=== PATIENT | female | born 1980 | race Caucasian/White ===

== ENCOUNTER 2021-09-27 08:02 | Emergency (ER) | payer OTHER, SELFPAY ==
[2021-09-27 08:05] VITALS: BP 105/61; PULSE 92; RESP 18; TEMP 37; O2SAT 99
--- NOTE | 2021-09-27 08:20 | ED.GENADULT ---
HPI - General Adult General Chief complaint: Upper Respiratory Infection Stated complaint: sore throat Source: patient Mode of arrival: ambulatory Limitations: no limitations History of Present Illness HPI narrative: 41 y/o female. PMHx none reported. Presents to [facility] today with acute complaints of sore throat and hoarse voice for the past 48 hours. Client notes a history of frequent streptococcal sore throat, and that theses manifestations are generally how she starts infection. No fever, nuchal rigidity. No airway distress, dyspnea, dysphagia, involuntary drooling. Related Data Home Medications Medication Instructions Recorded Confirmed drospirenone-ethinyl estradiol 1 tablet PO DAILY 09/27/21 09/27/21 [Theresa ([id number])] lamotrigine 100 mg PO DAILY 09/27/21 09/27/21 Allergies Allergy/AdvReac Type Severity Reaction Status Date / Time Penicillins Allergy Intermediate rash Verified 09/27/21 08:21 Review of Systems Review of Systems: CONSTITUTIONAL: Denies fever, chills, sweats. EYES: Denies visual changes, redness, discharge. ENT: Denies rhinorrhea, congestion, otalgia. Positive sore throat. CARDIOVASCULAR: Denies chest pain, palpitations, edema. RESPIRATORY: Denies dyspnea, wheezing, cough GASTROINTESTINAL: Denies abdominal pain, nausea, vomiting, diarrhea. GENITOURINARY: Denies dysuria, hematuria, abnormal discharge SKIN: Denies rash or itching. MUSCULOSKELETAL: Denies acute back pain, joint pain, or myalgia. NEUROLOGIC: Denies numbness, or focal weakness. PSYCHIATRIC: Denies anxiety or depression. All systems reviewed & are unremarkable except as noted in HPI and below Exam Narrative: GENERAL: This is a well-nourished, well-developed adult, in no apparent distress. HEAD: normocephalic, atraumatic. EYES: PERRL. Sclera clear/white. EARS: External ears normal, auditory canals clear and without drainage, TMs normal. NOSE: External nose normal. Positive Rhinorrhea, no obstruction, nares patent. THROAT: Mucous membranes moist, posterior pharynx erythematous with mild exudative changes. No swelling or distress. NECK: Neck supple, non-tender without lymphadenopathy, masses or thyromegaly. CARDIOVASCULAR: Regular rate and rhythm without murmurs, gallops, or rubs. RESPIRATORY: Clear to auscultation. Breath sounds equal bilaterally. No wheezes, rales, or rhonchi. GASTROINTESTINAL: Abdomen soft, non-tender, nondistended. Bowel sounds are active. No guarding. SKIN: warm, intact with no suspicious lesions or rash, good texture and turgor. NEURO: Alert, active, and age appropriate. No focal neurologic deficits. EXTREMITIES: Negative. Course Vital Signs Vital signs: Vital Signs Temperature 37.0 C 09/27/21 08:05 Pulse Rate 92 09/27/21 08:05 Respiratory Rate 18 09/27/21 08:05 Blood Pressure 105/61 09/27/21 08:05 Pulse Oximetry 99 09/27/21 08:05 Temperature 37.0 C 09/27/21 08:05 Pulse Rate 92 09/27/21 08:05 Respiratory Rate 18 09/27/21 08:05 Blood Pressure 105/61 09/27/21 08:05 Pulse Oximetry 99 09/27/21 08:05 Medical Decision Making MDM Narrative Medical decision making narrative: Rapid strep negative. Will Send for Cx. Tx with Azithromycin (PCN allergy) secondary to clinical findings on exam and strong history of streptococcal sore throat. No airway distress, appears non-toxic. Differential Diagnosis Differential Diagnosis: Differential Diagnosis: Consideration of the following conditions may be warranted for the presenting problem, they are not final diagnoses: upper respiratory infection, otitis media, sinusitis, RSV viral infection, bronchitis, pharyngitis, Streptococcal sore throat, COVID-19, and other. Medical Records Medical records reviewed: Yes I reviewed the external patient's medical records. Vital Signs Vital Signs: Vital Signs Temperature 37.0 C 09/27/21 08:05 Pulse Rate 92 09/27/21 08:05 Respiratory Rate 18 09/27/21 08:05 Bl
== END 2021-09-27 08:30 | disposition home or self-care (01) ==
PROVIDERS: Emergency Provider Nurse Practitioner Adult Health; PCP Internal Medicine
DX: J02.9 Acute pharyngitis, unspecified (principal)
CPT/HCPCS: 87081; 87880; 99203; G0463